=== PATIENT | female | born 1970 | race American Indian/Alaskan Native ===

== ENCOUNTER 2017-02-18 06:21 | Day surgery (SDC) | payer OTHER ==
[2017-02-18 07:26] LABS: INR 1.2 (0.87-1.13)
[2017-02-18 07:27] LABS: Partial Thromboplastin Time 33.4 Sec. (24.2-36.6)
[2017-02-18 07:46] LABS: Basophils % (Auto) 0.9 % (0.0-1.8); Eosinophils % (Auto) 2.3 % (0.0-4.3); Hematocrit 36.5 % (30.3-42.9); Hemoglobin 11.4 gm/dl (10.1-14.3); Mean Corpuscular HGB Conc 31 % (30-34); Mean Corpuscular Hemoglobin 26 pg (28-32); Mean Corpuscular Volume 84 fl (79-97); Platelet Count 222 K/mm3 (140-440); Red Blood Count 4.34 M/mm3 (3.65-5.03); Red Cell Distribution Width 15.9 % (13.2-15.2); White Blood Count 6.1 K/mm3 (4.5-11.0)
[2017-02-18] MEDS ORDERED: CLEOCIN 600 MG/50 mL 600 MG/50 ML BAG IV NR (08:00)
[2017-02-18 08:27] LABS: Anion Gap 15 mmol/L; Blood Urea Nitrogen 14 mg/dL (7-17); Calcium 8.5 mg/dL (8.4-10.2); Carbon Dioxide 23 mmol/L (22-30); Chloride 105.3 mmol/L (98-107); Glucose 98 mg/dL (65-100); Potassium 4.3 mmol/L (3.6-5.0); Sodium 139 mmol/L (137-145)
[2017-02-18] MEDS ORDERED: HURRICAINE ONE 20% TOPICAL SPRAY MM NR (10:00)
[2017-02-18] MEDS ORDERED: NACL 0.9% 1000 ML 1,000 ML IV SCH (10:00)
--- NOTE | 2017-02-18 10:17 | Anesthesia Day of Surgery ---
Anesthesia Day of Surgery - Day of Surgery Patient Examined: Yes Patient H&P Reviewed: Yes Patient is NPO: Yes
--- NOTE | 2017-02-18 10:17 | Anesthesia Consultation ---
Anesthesia Consult and Med Hx Date of service: 02/18/17 - Airway Anesthetic Teeth Evaluation: Poor ROM Head & Neck: Adequate Mental/Hyoid Distance: Adequate Mallampati Class: Class II Intubation Access Assessment: Probably Good - Pre-Operative Health Status ASA Pre-Surgery Classification: ASA3 Proposed Anesthetic Plan: MAC - Pulmonary Hx Smoking: Yes SOB: Yes - Cardiovascular System Hx Valvular Heart Disease: Yes (mitral valve replacement) Hx Heart Murmur: Yes - Central Nervous System Hx Psychiatric Problems: No - Other Systems Hx Cancer: No
[2017-02-18] MEDS ORDERED: XYLOCAINE MPF 2% ONE (10:22)
[2017-02-18] MEDS ORDERED: DIPRIVAN 10 MG/ML IV ONE (10:22)
[2017-02-18] MEDS ORDERED: LOVENOX SUB-Q ONE ×2 (12:00→13:00)
--- NOTE | 2017-02-18 12:07 | Event Note ---
Date: 02/18/17 Pt s/p mechanical aortic valve replacement and mitral valve annuloplasty and thus is anticoagulated with coumadin with tx INR goal of 2-3. INR noted to be 1.2 this AM prior to OP JOEY and she admits to noncompliance with PO coumadin. Pt received 60mg SQ lovenox in [facility] and it was recommended that she discharge home with lovenox, 60mg SQ BID, through Thursday. Also, pt to present to [facility] clinic on 02/23/2017 ~9AM for INR check. Pt states that she refuses to continue lovenox injections and/or hospitalization for heparin gtt for INR "bridging". She states that she will assume the risks of being discharged home with subtherapeutic INR, will take PO coumadin as prescribed, and will present to [facility] clinic on 02/23 for INR check. Will send pt home with lovenox prescription in the event that she changes her mind and is agreeable to the injections. Layne DANG NP / DR. Tiffanie LEDEZMA
[2017-02-18 12:53] VITALS: BP 141/81
== END 2017-02-18 13:00 | disposition home or self-care (01) ==
LOC: CATHLABREC 06:21 → EDSTATUS 08:30 → CATHLABREC 13:00
PROVIDERS: ATTEND Internal Medicine Cardiovascular Disease
DX: I34.0 Nonrheumatic mitral (valve) insufficiency (principal); Z95.2 Presence of prosthetic heart valve; Z79.01 Long term (current) use of anticoagulants; Z98.890 Other specified postprocedural states; Z88.0 Allergy status to penicillin; F17.210 Nicotine dependence, cigarettes, uncomplicated; Z72.89 Other problems related to lifestyle; Z83.3 Family history of diabetes mellitus; Z82.49 Family history of ischemic heart disease and other diseases of the circulatory system; Z80.3 Family history of malignant neoplasm of breast
CPT/HCPCS: 36415; 80048; 85025; 85610; 85730; 93312; 93320; 93325; 96365; 96372; J1650; J2704; J7030

== ENCOUNTER 2017-05-17 16:32 | Emergency (ER) | payer OTHER ==
[2017-05-17 17:15] VITALS: BP 145/68
--- NOTE | 2017-05-17 18:35 | XRay Report ---
FINAL REPORT PROCEDURE: AP and lateral left hand TECHNIQUE: Left hand radiographs, AP and lateral views. CPT 07117 HISTORY: Pain/swelling COMPARISON: No prior studies are available for comparison. FINDINGS: Fracture (s) and/or Dislocation(s): None . Alignment: Normal . Joint space(s): Normal . Soft tissues: Normal . Bone mineralization: Normal . Foreign bodies: None . IMPRESSION: Negative examination.
[2017-05-17] MEDS ORDERED: MOTRIN PO ONE (18:57)
[2017-05-17] MEDS ORDERED: TYLENOL PO ONE (19:04)
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
== END 2017-05-17 19:35 | disposition home or self-care (01) ==
LOC: ED 16:32
DX: S66.912A Strain of unspecified muscle, fascia and tendon at wrist and hand level, left hand, initial encounter (principal); F17.200 Nicotine dependence, unspecified, uncomplicated; Z88.0 Allergy status to penicillin; Z79.01 Long term (current) use of anticoagulants; X58.XXXA Exposure to other specified factors, initial encounter; Y93.89 Activity, other specified; Y92.89 Other specified places as the place of occurrence of the external cause; Y99.8 Other external cause status
CPT/HCPCS: 99283

== ENCOUNTER 2017-10-20 10:10 | Outpatient (CLI) | payer OTHER | END 2017-10-20 10:11 | disposition home or self-care (01) | LOC: US 10:10 → VAS 10:11 | PROVIDERS: ATTEND Internal Medicine | DX: M79.671 Pain in right foot (principal); M79.604 Pain in right leg; R20.2 Paresthesia of skin ==

== ENCOUNTER 2018-11-19 07:55 | Day surgery (SDC) | payer MEDICAID ==
--- NOTE | 2018-11-15 11:06 | History and Physical Report ---
History of Present Illness Date of examination: 11/19/18 Date of admission: 11/15/2018 History of present illness: 48-year-old woman who is status post mechanical aortic valve replacement and nallely ral valve repair. In our office, she c/o short of breath especially with minimal exertion accompanied by palpitations and has moderate to severe mitral regurgitation confirmed by transesophageal echocardiography. She presents for JOEY today for further evaluation. Past History Past Medical History: other (as per HPI) Medications and Allergies Allergies Allergy/AdvReac Type Severity Reaction Status Date / Time Penicillins Allergy fever Verified 05/24/14 09:16 Home Medications Medication Instructions Recorded Confirmed Last Taken Type Warfarin [Coumadin] 7.5 mg PO DAILY 02/18/17 11/19/18 11/18/18 History 7.5mg Lisinopril [Zestril TAB] 20 mg PO DAILY 11/19/18 11/19/18 11/18/18 History 20mg Review of Systems Cardiovascular: palpitations, shortness of breath Physical Examination General appearance: no acute distress HEENT: Positive: PERRL, Normocephaly, Mucus Membranes Moist Neck: Positive: neck supple, trachea midline Cardiac: Positive: Reg Rate and Rhythm, S1/S2 Lungs: Positive: Decreased Breath Sounds Neuro: Positive: Grossly Intact Abdomen: Positive: Soft. Negative: Tender Musculoskeletal: No Pain Extremities: Absent: edema Results 11/19/18 Unknown Assessment and Plan Proceed with JOEY as scheduled. Await findings. The patient has been seen in conjunction with Dr. Cook who agrees with the assessment and plan of care. - Patient Problems (1) Mitral regurgitation Current Visit: No Status: Chronic (2) SOB (shortness of breath) Current Visit: No Status: Acute (3) Palpitations Current Visit: No Status: Acute (4) S/P mitral valve repair Current Visit: No Status: Chronic (5) Status post mechanical aortic valve replacement Current Visit: No Status: Chronic (6) HTN (hypertension) Current Visit: No Status: Acute
[2018-11-19] MEDS ORDERED: CLEOCIN 600 MG/50 mL 600 MG/50 ML BAG IV ONE (08:17)
[2018-11-19] MEDS ORDERED: NACL 0.9% 500 ML 500 ML IV SCH (09:00)
[2018-11-19] MEDS ORDERED: HURRICAINE ONE 20% TOPICAL SPRAY MM NR (09:00)
--- NOTE | 2018-11-19 09:09 | Anesthesia Consultation ---
Anesthesia Consult and Med Hx Date of service: 11/19/18 - Airway Anesthetic Teeth Evaluation: Poor (some chipped teeth) ROM Head & Neck: Adequate Mental/Hyoid Distance: Adequate Mallampati Class: Class II Intubation Access Assessment: Probably Good - Pre-Operative Health Status ASA Pre-Surgery Classification: ASA3 Proposed Anesthetic Plan: MAC - Pulmonary Hx Smoking: Yes (1/2 pack x 27 years) SOB: Yes - Cardiovascular System Hx Hypertension: Yes Hx Valvular Heart Disease: Yes (aortic valve replacement (2014), MV regurgitation) Hx Heart Murmur: Yes - Central Nervous System Hx Psychiatric Problems: No - Other Systems Hx Cancer: No
--- NOTE | 2018-11-19 09:12 | Anesthesia Day of Surgery ---
Anesthesia Day of Surgery - Day of Surgery Patient Examined: Yes Patient H&P Reviewed: Yes Patient is NPO: Yes Cardiac Clearance: Yes
[2018-11-19 09:13] LABS: Hematocrit 41.9 % (30.3-42.9); Hemoglobin 13.8 gm/dl (10.1-14.3); Mean Corpuscular HGB Conc 33 % (30-34); Mean Corpuscular Volume 86 fl (79-97); Platelet Count 224 K/mm3 (140-440); Red Blood Count 4.88 M/mm3 (3.65-5.03); Red Cell Distribution Width 15.8 % (13.2-15.2)
[2018-11-19 09:19] LABS: INR 2.68 (0.87-1.13)
[2018-11-19 09:20] LABS: Partial Thromboplastin Time 42.8 Sec. (24.2-36.6)
[2018-11-19] MEDS ORDERED: DIPRIVAN 10 MG/ML IV ONE ×3 (10:02→12:23)
[2018-11-19 10:07] LABS: BUN/Creatinine Ratio 14; Blood Urea Nitrogen 10 mg/dL (7-17); Calcium 8.9 mg/dL (8.4-10.2); Hemolysis Index 4
[2018-11-19] MEDS ORDERED: ZOFRAN IV ONE (12:53)
[2018-11-19 13:05] VITALS: BP 160/87
== END 2018-11-19 14:00 | disposition home or self-care (01) ==
LOC: CATHLABREC 07:55 → ECHO 07:55 → EDSTATUS 12:00 → CATHLABREC 14:00
PROVIDERS: ATTEND Internal Medicine Cardiovascular Disease
DX: I08.1 Rheumatic disorders of both mitral and tricuspid valves (principal); I27.20 Pulmonary hypertension, unspecified; F17.210 Nicotine dependence, cigarettes, uncomplicated; I10 Essential (primary) hypertension; I73.9 Peripheral vascular disease, unspecified; G62.9 Polyneuropathy, unspecified; Z98.890 Other specified postprocedural states; Z82.5 Family history of asthma and other chronic lower respiratory diseases; Z95.2 Presence of prosthetic heart valve; Z79.899 Other long term (current) drug therapy; Z88.0 Allergy status to penicillin; Z79.01 Long term (current) use of anticoagulants; Z98.49 Cataract extraction status, unspecified eye; Z80.8 Family history of malignant neoplasm of other organs or systems; Z82.49 Family history of ischemic heart disease and other diseases of the circulatory system
CPT/HCPCS: 36415; 80048; 85025; 85610; 85730; 93312; 93320; 93325; 96365; J2405; J2704; J7040; 96374